=== PATIENT | female | born 1985 | race Caucasian/White ===

== ENCOUNTER 2021-02-03 19:20 | Emergency (ER) | payer OTHER ==
[2021-02-03] MEDS ORDERED: SODIUM CHLORIDE 0.9% 1,000 ML IV STA (19:48)
--- NOTE | 2021-02-03 19:50 | ED ---
Female Urogenital HPI - General Chief complaint: Vaginal Bleeding Stated complaint: early , vaginal bleeding Time Seen by Provider: 02/03/21 19:33 Source: patient Mode of arrival: ambulatory Limitations: no limitations - History of Present Illness Initial comments: 35-year-old female, , ten-day presenting to emergency Department w ith a chief complaint of vaginal bleeding. Patient reports she has recently moved to the area and about 10 days ago she found out she was after 2 positive home test. Patient reports last night she noticed small amount of spotting but today she noticed passing bright red clots. States the bleeding is rather minimal she is going through one pad about every 2-3 hours. She reports mild suprapubic cramping but nothing of significance. Does report some diffuse, mild low back pain. She denies any vaginal discharge, itching or foul smell. Denies increased urgency frequency or dysuria. Denies any fevers chills nausea vomiting or diarrhea. She is O-. - Related Data Home Medications Medication Instructions Recorded Confirmed No Known Home Medications 02/03/21 02/03/21 Allergies Allergy/AdvReac Type Severity Reaction Status Date / Time Penicillins Allergy Unknown Verified 02/03/21 20:41 Review of Systems ROS Statement: Those systems with pertinent positive or pertinent negative responses have been documented in the HPI. ROS Other: All systems not noted in ROS Statement are negative. Past Medical History Past Medical History: No Reported History History of Any Multi-Drug Resistant Organisms: None Reported Additional Past Surgical History / Comment(s): fibroid removal 2012 Past Psychological History: No Psychological Hx Reported Smoking Status: Never smoker Past Alcohol Use History: None Reported Past Drug Use History: None Reported General Exam Limitations: no limitations General appearance: alert, in no apparent distress, obese Head exam: Present: atraumatic, normocephalic, normal inspection Eye exam: Present: normal appearance, PERRL, EOMI Pupils: Present: normal accommodation ENT exam: Present: normal exam, normal oropharynx, mucous membranes moist Neck exam: Present: normal inspection, full ROM. Absent: tenderness, lymphadenopathy Respiratory exam: Present: normal lung sounds bilaterally. Absent: respiratory distress, wheezes, rales, rhonchi, stridor, chest wall tenderness Cardiovascular Exam: Present: regular rate, normal rhythm, normal heart sounds. Absent: systolic murmur GI/Abdominal exam: Present: soft. Absent: distended, tenderness, guarding, rebound, rigid Extremities exam: Present: normal inspection, full ROM, normal capillary refill. Absent: tenderness, pedal edema, joint swelling Back exam: Present: normal inspection, full ROM. Absent: tenderness, CVA tenderness (R), CVA tenderness (L), muscle spasm, paraspinal tenderness Neurological exam: Present: alert, oriented X3 Psychiatric exam: Present: normal affect, normal mood Skin exam: Present: warm, dry, intact, normal color Course Vital Signs 02/03/21 19:28 Temperature 98.5 F Pulse Rate 75 Respiratory 22 Rate Blood Pressure 117/77 O2 Sat by Pulse 99 Oximetry Medical Decision Making - Medical Decision Making 35-year-old female, , ten-day presenting to emergency Department with a chief complaint of vaginal bleeding. On physical examination, no abdominal tenderness. No CVA tenderness either. Vital signs are within normal limits. Laboratory work is unremarkable. HCG Quant is 11. UA shows hematuria but no signs of urinary tract infection. No bacteriuria. Ultrasound shows no acute findings. It is too early for any detectable findings at this time. Patient is O-. She will be given rhogam. She is to follow-up with an OB. Return parameters were discussed the patient is an ascending ago. Case di scussed with - Lab Data Result diagrams: 02/03/21 20:32 02/03/21 20:32 Lab Results 02/03/21 02/03/21 02/03/21 Range/Units 20:27 20:32 20:32 WBC 4.6 (3.8-10.6) k/uL RBC 4.16 (3.80-5.40) m/uL Hgb 12.7 (11.4-16.0) gm/dL Hct 37.8 (34.0-46.0) % MCV 90.9 (80.0-100.0) fL MCH 30.5 (25.0-35.0) pg MCHC 33.6 (31.0-37.0) g/dL RDW 14.1 (11.5-15.5) % Plt Count 164 (150-450) k/uL MPV 8.7 Neutrophils % 61 % Lymphocytes % 30 % Monocytes % 4 % Eosinophils % 2 % Basophils % 0 % Neutrophils # 2.8 (1.3-7.7) k/uL Lymphocytes # 1.4 (1.0-4.8) k/uL Monocytes # 0.2 (0-1.0) k/uL Eosinophils # 0.1 (0-0.7) k/uL Basophils # 0.0 (0-0.2) k/uL PT 10.4 (9.0-12.0) sec INR 1.0 (<1.2) APTT 23.3 (22.0-30.0) sec Sodium (137-145) mmol/L Potassium (3.5-5.1) mmol/L Chloride (98-107) mmol/L Carbon Dioxide (22-30) mmol/L Anion Gap mmol/L BUN (7-17) mg/dL Creatinine (0.52-1.04) mg/dL Est GFR (CKD-EPI)AfAm (>60 ml/min/1.73 sqM) Est GFR (CKD-EPI)NonAf (>60 ml/min/1.73 sqM) Glucose (74-99) mg/dL Calcium (8.4-10.2) mg/dL Total Bilirubin (0.2-1.3) mg/dL AST (14-36) U/L ALT (4-34) U/L Alkaline Phosphatase (38-126) U/L Total Protein (6.3-8.2) g/dL Albumin (3.5-5.0) g/dL HCG, Quant mIU/mL Urine Color Urine Appearance (Clear) Urine pH (5.0-8.0) Ur Specific [place] (1.001-1.035) Urine Protein (Negative) Urine Glucose (UA) (Negative) Urine Ketones (Negative) Urine Blood (Negative) Urine Nitrite (Negative) Urine Bilirubin (Negative) Urine Urobilinogen (<2.0) mg/dL Ur Leukocyte Esterase (Negative) Urine RBC (0-5) /hpf Ur Squamous Epith Cells (0-4) /hpf Urine Mucus (None) /hpf Urine HCG, Qual (Not Detectd) Blood Type O Negative Blood Type Confirm Blood Type Recheck Bld Type Recheck Status Antibody Screen NEGATIVE Spec Expiration Date 02/03/21 02/03/21 02/03/21 Range/Units 20:32 20:32 20:32 WBC (3.8-10.6) k/uL RBC (3.80-5.40) m/uL Hgb (11.4-16.0) gm/dL Hct (34.0-46.0) % MCV (80.0-100.0) fL MCH (25.0-35.0) pg MCHC (31.0-37.0) g/dL RDW (11.5-15.5) % Plt Count (150-450) k/uL MPV Neutrophils % % Lymphocytes % % Monocytes % % Eosinophils % % Basophils % % Neutrophils # (1.3-7.7) k/uL Lymphocytes # (1.0-4.8) k/uL Monocytes # (0-1.0) k/uL Eosinophils # (0-0.7) k/uL Basophils # (0-0.2) k/uL PT (9.0-12.0) sec INR (<1.2) APTT (22.0-30.0) sec Sodium 137 (137-145) mmol/L Potassium 4.3 (3.5-5.1) mmol/L Chloride 107 (98-107) mmol/L Carbon Dioxide 21 L (22-30) mmol/L Anion Gap 9 mmol/L BUN 15 (7-17) mg/dL Creatinine 0.87 (0.52-1.04) mg/dL Est GFR (CKD-EPI)AfAm >90 (>60 ml/min/1.73 sqM) Est GFR (CKD-EPI)NonAf 87 (>60 ml/min/1.73 sqM) Glucose 108 H (74-99) mg/dL Calcium 9.2 (8.4-10.2) mg/dL Total Bilirubin 0.3 (0.2-1.3) mg/dL AST 21 (14-36) U/L ALT 11 (4-34) U/L Alkaline Phosphatase 76 (38-126) U/L Total Protein 6.9 (6.3-8.2) g/dL Albumin 4.3 (3.5-5.0) g/dL HCG, Quant mIU/mL Urine Color Yellow Urine Appearance Clear (Clear) Urine pH 6.5 (5.0-8.0) Ur Specific [place] 1.030 (1.001-1.035) Urine Protein Trace H (Negative) Urine Glucose (UA) Negative (Negative) Urine Ketones Negative (Negative) Urine Blood Large H (Negative) Urine Nitrite Negative (Negative) Urine Bilirubin Negative (Negative) Urine Urobilinogen 12.0 (<2.0) mg/dL Ur Leukocyte Esterase Negative (Negative) Urine RBC >182 H (0-5) /hpf Ur Squamous Epith Cells 1 (0-4) /hpf Urine Mucus Moderate H (None) /hpf Urine HCG, Qual Detected (Not Detectd) Blood Type Blood Type Confirm Blood Type Recheck Bld Type Recheck Status Antibody Screen Spec Expiration Date 02/03/21 02/03/21 02/03/21 Range/Units 20:32 20:32 20:51 WBC (3.8-10.6) k/uL RBC (3.80-5.40) m/uL Hgb (11.4-16.0) gm/dL Hct (34.0-46.0) % MCV (80.0-100.0) fL MCH (25.0-35.0) pg MCHC (31.0-37.0) g/dL RDW (11.5-15.5) % Plt Count (150-450) k/uL MPV Neutrophils % % Lymphocytes % % Monocytes % % Eosinophils % % Basophils % % Neutrophils # (1.3-7.7) k/uL Lymphocytes # (1.0-4.8) k/uL Monocytes # (0-1.0) k/uL Eosinophils # (0-0.7) k/uL Basophils # (0-0.2) k/uL PT (9.0-12.0) sec INR (<1.2) APTT (22.0-30.0) sec Sodium (137-145) mmol/L Potassium (3.5-5.1) mmol/L Chloride (98-107) mmol/L Carbon Dioxide (22-30) mmol/L Anion Gap mmol/L BUN (7-17) mg/dL Creatinine (0.52-1.04) mg/dL Est GFR (CKD-EPI)AfAm (>60 ml/min/1.73 sqM) Est GFR (CKD-EPI)NonAf (>60 ml/min/1.73 sqM) Glucose (74-99) mg/dL Calcium (8.4-10.2) mg/dL Total Bilirubin (0.2-1.3) mg/dL AST (14-36) U/L ALT (4-34) U/L Alkaline Phosphatase (38-126) U/L Total Protein (6.3-8.2) g/dL Albumin (3.5-5.0) g/dL HCG, Quant 11.4 mIU/mL Urine Color Urine Appearance (Clear) Urine pH (5.0-8.0) Ur Specific [place] (1.001-1.035) Urine Protein (Negative) Urine Glucose (UA) (Negative) Urine Ketones (Negative) Urine Blood (Negative) Urine Nitrite (Negative) Urine Bilirubin (Negative) Urine Urobilinogen (<2.0) mg/dL Ur Leukocyte Esterase (Negative) Urine RBC (0-5) /hpf Ur Squamous Epith Cells (0-4) /hpf Urine Mucus (None) /hpf Urine HCG, Qual (Not Detectd) Blood Type Blood Type Confirm O Negative Blood Type Recheck No Previous Record Bld Type Recheck Status CABO Indicated Antibody Screen Spec Expiration Date 02/06/20212331 Disposition Clinical Impression: Vaginal bleeding in patient after first trimester Disposition: HOME SELF-CARE Condition: Stable Instructions (If sedation given, give patient instructions): Non-Threatening First Trimester Vaginal Bleed (ED) Additional Instructions: Follow-up with her OB. Return to emergency department if symptoms worsen. Is patient prescribed a controlled substance at d/c from ED?: No Referrals: Ricardo Walters III, MD [Primary Care Provider] - 1-2 days Time of Disposition: 22:16
[2021-02-03 20:42] LABS: Basophils % (A) 0 %; Eosinophils # (A) 0.1 k/uL (0-0.7); Eosinophils % (A) 2 %; HCT 37.8 % (34.0-46.0); HGB 12.7 gm/dL (11.4-16.0); Lymphocytes # (A) 1.4 k/uL (1.0-4.8); Lymphocytes % (A) 30 %; MCH 30.5 pg (25.0-35.0); MCHC 33.6 g/dL (31.0-37.0); MCV 90.9 fL (80.0-100.0); Mean Platelet Volume 8.7; Monocytes # (A) 0.2 k/uL (0-1.0); Monocytes % (A) 4 %; Neutrophils # (A) 2.8 k/uL (1.3-7.7); Neutrophils % (A) 61 %; Platelet Count 164 k/uL (150-450); RBC 4.16 m/uL (3.80-5.40); RDW 14.1 % (11.5-15.5); WBC 4.6 k/uL (3.8-10.6)
[2021-02-03 20:54] LABS: Appearance,Urine Clear (Clear); Bilirubin,Urine Negative (Negative); Blood,Urine Large (Negative); Color,Urine Yellow; Glucose,Urine (UA) Negative (Negative); Ketones,Urine Negative (Negative); Leukocyte Esterase,Urine Negative (Negative); Mucus,Urine Moderate /hpf; Nitrite,Urine Negative (Negative); PH, Urine 6.5 (5.0-8.0); Protein,Urine Trace (Negative); RBC,Urine >182 /hpf (0-5); Squamous Epithelial Cell,Urine 1 /hpf (0-4)
[2021-02-03 20:59] LABS: Partial Thromboplastin Time 23.3 sec (22.0-30.0); Prothrombin Time 10.4 sec (9.0-12.0)
[2021-02-03 21:04] LABS: ALT 11 U/L (4-34); AST 21 U/L (14-36); African American GFR (CKD) >90 (>60 ml/min/1.73 sqM); Albumin 4.3 g/dL (3.5-5.0); Alkaline Phosphatase 76 U/L (38-126); Anion Gap 9 mmol/L; Blood Urea Nitrogen 15 mg/dL (7-17); Calcium 9.2 mg/dL (8.4-10.2); Carbon Dioxide 21 mmol/L (22-30); Chloride 107 mmol/L (98-107); Glucose 108 mg/dL (74-99); Non-African American GFR(CKD) 87 (>60 ml/min/1.73 sqM); Potassium 4.3 mmol/L (3.5-5.1); Sodium 137 mmol/L (137-145); Total Bilirubin 0.3 mg/dL (0.2-1.3); Total Protein 6.9 g/dL (6.3-8.2)
--- NOTE | 2021-02-03 21:35 | US ---
EXAMINATION TYPE: Transabdominal DATE OF EXAM: 02/03/2021 9:06 PM COMPARISON: NONE CLINICAL HISTORY: vag bleeding, 10 days . Vaginal bleeding. Hx fibroid removed. . EXAM PERFORMED: Transvaginal (TV) and Transabdominal (TA) EXAM MEASUREMENTS: GESTATIONAL AGE / DATING Physician Established: Not yet established. Dates by LMP: (5 weeks/6 days) EDC: 09/30/2021 Dates by First Scan: This is first scan. Dates by Current Scan for: No IUP seen at this time. MATERNAL ANATOMY Uterus: 9.9 x 6.6 x 4.3 cm. Anechoic area seen in cervix: 0.7 x 0.4 x 0.2 cm. Complex area seen in c ervix: 1.4 x 0.9 x 0.7 cm. Right Ovary: 3.7 x 2.5 x 2.5 cm. Hypoechoic area seen: 0.9 x 1.0 x 1.0 cm. Anechoic area seen: 1.0 x 1.0 x 1.1 cm. Left Ovary: 2.9 x 2.7 x 1.3 cm. Subcentimeter anechoic areas seen. Post CDS / Adnexa: Appear wnl. Presence of free fluid: None seen. Presence of corpus luteal cyst: Not seen. GESTATION / SURVEY IUP: No IUP seen at this time by ultrasound. Date of LMP: 12/24/2020 Beta HcG (if available): Not available at time of exam. IMPRESSION: No evidence of intrauterine or acute abnormality. Recommend serial beta hCG measurement and follow-up imaging as indicated. Nonspecific cystlike changes of the lower uterine segment and ovaries.
[2021-02-03] MEDS ORDERED: Rhogam IMMUNE GLOBULIN 1,500 UNIT/1 ML IM ONE (21:58)
[2021-02-03 23:14] VITALS: BP 120/74; PULSE 81; RESP 17; TEMP 98.2
== END 2021-02-03 22:50 | disposition home or self-care (01) ==
LOC: EC 19:20
DX: O20.9 Hemorrhage in early pregnancy, unspecified (principal); Z3A.01 Less than 8 weeks gestation of pregnancy; Z88.0 Allergy status to penicillin
CPT/HCPCS: 36415; 86900; 86901; 80053; 85025; 85610; 85730; 86850; 81001; 81025; 84702; 76801; 76817; 96360; 96361; 99284; 96372; J2790

== ENCOUNTER → 2021-03-04 | Outpatient (CLI) | payer OTHER | END | disposition home or self-care (01) | LOC: LABWHC1 12:21 | PROVIDERS: ATTEND Family Medicine | DX: R43.9 Unspecified disturbances of smell and taste (principal) | CPT/HCPCS: U0003; U0005 ==

== ENCOUNTER 2021-03-07 13:57 | Emergency (ER) | payer OTHER ==
[2021-03-07] MEDS ORDERED: diphenhydrAMINE 50 MG/ML 1 ML VIAL IVP STA ×2 (15:28→16:46)
[2021-03-07] MEDS ORDERED: SODIUM CHLORIDE 0.9% 1,000 ML IV STA ×2 (15:28→17:25)
[2021-03-07] MEDS ORDERED: KETOROLAC 15 MG/ML 1 ML VIAL IVP STA (15:28)
[2021-03-07] MEDS ORDERED: ONDANSETRON 4 MG/2 ML VIAL IVP STA (15:28)
[2021-03-07] MEDS ORDERED: SODIUM CHLORIDE 0.9% 50 ML IVPB ONE (16:00)
[2021-03-07] MEDS ORDERED: CASIRIVIMAB/IMDEVIMAB (EUA) 1,200 MG in SODIUM CHLORIDE 0.9% 100 ML IVPB ONE (16:30)
--- NOTE | 2021-03-07 16:30 | ED ---
General Adult HPI - General Chief complaint: Nausea/Vomiting/Diarrhea Stated complaint: vomiting Time Seen by Provider: 03/07/21 15:04 Source: patient, RN notes reviewed, old records reviewed Mode of arrival: wheelchair Limitations: no limitations - History of Present Illness Initial comments: I evaluated the patient and she was placed in a room.Patient is a 35-year-old female with past medical history that is unremarkable presents emergency Department complaining of a COVID-19 for infection. Patient states that she began having symptoms on the fifth of this month and tested positive on the . Is currently the 12th. Patient's BMI is 31, and therefore she does meet criteria for monoclonal antibody treatment. She is describing persistent joint pain, nausea, vomiting. She states that the emesis is nonbilious nonbloody. Throughout the day today, she states that her emesis is been worse and she has been unable to tolerate by mouth intake which is why she presents immersed department for evaluation. She denies any fevers, chills, chest pain, shortness of breath. Denies any headaches, weakness, lightheadedness. Primary complaint is joint pain as well as the nausea. She was not vaccinated for COVID-19. - Related Data Home Medications Medication Instructions Recorded Confirmed Acetaminophen Tab [Tylenol Tab] 1,000 mg PO Q6HR PRN 03/07/21 03/07/21 Naproxen 1,000 mg PO Q8H PRN 03/07/21 03/07/21 guaiFENesin [Mucinex] 1,200 mg PO BID PRN 03/07/21 03/07/21 Previous Rx's Medication Instructions Recorded Acetaminophen Tab [Tylenol] 500 mg PO Q6H PRN 7 Days #28 tablet 03/07/21 Ondansetron Odt [Zofran Odt] 4 mg PO Q8HR PRN 2 Days #6 tab 03/07/21 Allergies Allergy/AdvReac Type Severity Reaction Status Date / Time Penicillins Allergy Unknown Verified 03/07/21 15:59 Review of Systems ROS Statement: Those systems with pertinent positive or pertinent negative responses have been documented in the HPI. Review of Systems: CONST: Denies fever EYES: Denies blurry vision ENT: Denies nasal congestion C/V: Denies Chest pain RESP: Denies shortness of breath GI: Nurse's nausea : Denies dysuria SKIN: Denies rash. MSK: Endorses joint pain NEURO: Denies headache ROS Other: All systems not noted in ROS Statement are negative. Past Medical History Past Medical History: No Reported History History of Any Multi-Drug Resistant Organisms: None Reported Past Surgical History: No Surgical Hx Reported Additional Past Surgical History / Comment(s): fibroid removal 2012 Past Psychological History: No Psychological Hx Reported Smoking Status: Never smoker Past Alcohol Use History: None Reported Past Drug Use History: None Reported General Exam - General Exam Comments Initial Comments: General: Appears in no acute distress. HEAD: Normal with no signs of head trauma. EYES: PERRLA, EOMI, conjunctiva normal, no discharge. ENT: Hearing grossly intact, normal oropharynx. Mucous membranes are moist. RESPIRATORY: Clear breath sounds bilaterally. No wheezes, rales, or rhonchi. C/V: Patient is mildly tachycardic with regular rhythm. S1 and S2 auscultated. No peripheral edema. Peripheral pulses are 2+ intact throughout. ABD: Abd is soft, nontender, nondistended EXT: Normal range of motion, no obvious deformity SKIN: No rashes or lesions observed on exposed skin. NEURO: Alert and oriented 4. No focal sensory strength deficits. Limitations: no limitations Course Vital Signs 03/07/21 03/07/21 03/07/21 14:17 16:54 18:29 Temperature 98.6 F 98.6 F Pulse Rate 106 H 99 122 H Respiratory 20 16 18 Rate Blood Pressure 104/71 104/63 125/72 O2 Sat by Pulse 96 93 L 97 Oximetry 03/07/21 03/07/21 18:56 19:12 Temperature 98 F Pulse Rate 100 99 Respiratory 16 20 Rate Blood Pressure 109/78 O2 Sat by Pulse 97 97 Oximetry Medical Decision Making - Medical Decision Making Based on the patient's presentation and physical exam, she is acutely infected COVID-19. She does meet criteria for monoclonal antibody treatment and therefore these are ordered for her. She consented to treatment. We will obtain basic laboratory studies as I believe she may be mildly dehydrated. She will be given a fluid bolus as well as IV Zofran, Benadryl for her abdominal discomfort. She was in agreement this plan. Patient's lavatory studies are remarkable for a lymphopenia with white blood cell count of 2.6 and lymphocyte number of 0.4 which is expected in acute COVID- 19 infection. Urinalysis reveals 2+ ketones, indicative of a dehydration. Remainder of her labs are unremarkable. On reevaluation, patient seems somewhat improved. Monoclonal antibody treatment will be started and she'll be observed for signs of an ALLERGIC reaction. Approximate 5 minutes after monoclonal antibody treatment, patient states that she felt chest tightness, and thought she was having ALLERGIC reaction. Denies any pruritus or difficulty breathing. Denies any nausea or vomiting. The infusion was stopped. She was administered an additional 25 mg of IV Benadryl as well as IV famotidine and Solu-Medrol. She improved following this. She may have expressing mild ALLERGIC reaction to the monoclonal antibodies but we will observe for any breakthrough reactions of in the next few hours. She was in agreement this plan. She'll be given an additional fluid bolus. She requested pain medications for her joint pain which was provided. On reevaluation, patient is tolerating by mouth intake. She was observed for 2 additional hours in the ED. I do believe it is safe for her to be discharged home with close follow-up and she was in agreement this plan. Patient was never hypoxic in the emergency department I do not believe that she requires admission at this time for COVID-19 infection. She does not meet criteria for steroids or other treatments at this time. Monoclonal antibody treatment was stopped secondary to mild allergic reaction. I will provide the patient with a prescription for Zofran ODT, Tylenol. I instructed the patient to follow up with their PCP in the next 3 days. . I explained that the patient should return to the emergency department if they experience any worsening symptoms. Strict return precautions were discussed with the patient. The patient expressed understanding of these instructions. I answered all questions that the patient had. The patient was discharged home in fair condition with their prescriptions and follow up information. - Lab Data Result diagrams: 03/07/21 16:30 03/07/21 16:30 Lab Results 03/07/21 03/07/21 03/07/21 Range/Units 16:30 16:30 16:30 WBC 2.6 L (3.8-10.6) k/uL RBC 4.30 (3.80-5.40) m/uL Hgb 13.2 (11.4-16.0) gm/dL Hct 37.6 (34.0-46.0) % MCV 87.5 (80.0-100.0) fL MCH 30.6 (25.0-35.0) pg MCHC 35.0 (31.0-37.0) g/dL RDW 13.0 (11.5-15.5) % Plt Count 107 L (150-450) k/uL MPV 8.1 Neutrophils % 80 % Lymphocytes % 16 % Monocytes % 2 % Eosinophils % 0 % Basophils % 1 % Neutrophils # 2.1 (1.3-7.7) k/uL Lymphocytes # 0.4 L (1.0-4.8) k/uL Monocytes # 0.1 (0-1.0) k/uL Eosinophils # 0.0 (0-0.7) k/uL Basophils # 0.0 (0-0.2) k/uL Sodium 138 (137-145) mmol/L Potassium 4.1 (3.5-5.1) mmol/L Chloride 107 (98-107) mmol/L Carbon Dioxide 22 (22-30) mmol/L Anion Gap 9 mmol/L BUN 14 (7-17) mg/dL Creatinine 0.63 (0.52-1.04) mg/dL Est GFR (CKD-EPI)AfAm >90 (>60 ml/min/1.73 sqM) Est GFR (CKD-EPI)NonAf >90 (>60 ml/min/1.73 sqM) Glucose 95 (74-99) mg/dL Calcium 8.4 (8.4-10.2) mg/dL Magnesium 1.8 (1.6-2.3) mg/dL Total Bilirubin 0.5 (0.2-1.3) mg/dL AST 36 (14-36) U/L ALT 16 (4-34) U/L Alkaline Phosphatase 70 (38-126) U/L Total Protein 6.7 (6.3-8.2) g/dL Albumin 3.6 (3.5-5.0) g/dL Lipase 86 (23-300) U/L Urine Color Yellow Urine Appearance Clear (Clear) Urine pH 6.0 (5.0-8.0) Ur Specific [place] 1.036 H (1.001-1.035) Urine Protein 1+ H (Negative) Urine Glucose (UA) Negative (Negative) Urine Ketones 2+ H (Negative) Urine Blood Negative (Negative) Urine Nitrite Negative (Negative) Urine Bilirubin Negative (Negative) Urine Urobilinogen 6.0 (<2.0) mg/dL Ur Leukocyte Esterase Negative (Negative) Urine RBC 9 H (0-5) /hpf Urine WBC 2 (0-5) /hpf Ur Squamous Epith Cells 2 (0-4) /hpf Urine Bacteria Rare H (None) /hpf Urine Mucus Few H (None) /hpf Disposition Clinical Impression: COVID-19 virus infection, Allergic reaction, Nausea and vomiting, Dehydration Disposition: HOME SELF-CARE Condition: Fair Instructions (If sedation given, give patient instructions): Coronavirus Disease 2019 (COVID-19), Acute Nausea and Vomiting (ED) Prescriptions: Acetaminophen Tab [Tylenol] 500 mg PO Q6H PRN 7 Days #28 tablet PRN Reason: Pain Ondansetron Odt [Zofran Odt] 4 mg PO Q8HR PRN 2 Days #6 tab PRN Reason: Nausea Is patient prescribed a controlled substance at d/c from ED?: No Referrals: Ricardo Walters III, MD [Primary Care Provider] - 1-2 days
[2021-03-07] MEDS ORDERED: methylPREDNISolone SOD SUCCI 125 MG/2 ML VIAL IV STA (16:46)
[2021-03-07] MEDS ORDERED: FAMOTIDINE 20 MG/2 ML VIAL IV STA (16:46)
[2021-03-07 16:48] LABS: Basophils % (A) 1 %; Eosinophils % (A) 0 %; HCT 37.6 % (34.0-46.0); HGB 13.2 gm/dL (11.4-16.0); Lymphocytes # (A) 0.4 k/uL (1.0-4.8); Lymphocytes % (A) 16 %; MCH 30.6 pg (25.0-35.0); MCV 87.5 fL (80.0-100.0); Mean Platelet Volume 8.1; Monocytes # (A) 0.1 k/uL (0-1.0); Monocytes % (A) 2 %; Neutrophils # (A) 2.1 k/uL (1.3-7.7); Neutrophils % (A) 80 %; Platelet Count 107 k/uL (150-450); WBC 2.6 k/uL (3.8-10.6)
[2021-03-07 17:02] LABS: ALT 16 U/L (4-34); AST 36 U/L (14-36); African American GFR (CKD) >90 (>60 ml/min/1.73 sqM); Albumin 3.6 g/dL (3.5-5.0); Alkaline Phosphatase 70 U/L (38-126); Anion Gap 9 mmol/L; Blood Urea Nitrogen 14 mg/dL (7-17); Calcium 8.4 mg/dL (8.4-10.2); Carbon Dioxide 22 mmol/L (22-30); Chloride 107 mmol/L (98-107); Glucose 95 mg/dL (74-99); Lipase 86 U/L (23-300); Magnesium 1.8 mg/dL (1.6-2.3); Non-African American GFR(CKD) >90 (>60 ml/min/1.73 sqM); Potassium 4.1 mmol/L (3.5-5.1); Sodium 138 mmol/L (137-145); Total Bilirubin 0.5 mg/dL (0.2-1.3); Total Protein 6.7 g/dL (6.3-8.2)
[2021-03-07 17:22] LABS: Appearance,Urine Clear (Clear); Bacteria,Urine Rare /hpf; Bilirubin,Urine Negative (Negative); Blood,Urine Negative (Negative); Color,Urine Yellow; Glucose,Urine (UA) Negative (Negative); Ketones,Urine 2+ (Negative); Leukocyte Esterase,Urine Negative (Negative); Mucus,Urine Few /hpf; Nitrite,Urine Negative (Negative); Protein,Urine 1+ (Negative); RBC,Urine 9 /hpf (0-5); Specific Gravity,Urine 1.036 (1.001-1.035); Squamous Epithelial Cell,Urine 2 /hpf (0-4); WBC,Urine 2 /hpf (0-5)
[2021-03-07] MEDS ORDERED: MORPHINE SULFATE 2 MG/ML SYRINGE IVP STA (17:41)
[2021-03-07] MEDS ORDERED: ACETAMINOPHEN TAB 500 MG TAB PO STA (17:41)
[2021-03-07] MEDS ORDERED: ONDANSETRON ODT 4 MG TAB PO STA (19:04)
[2021-03-07 19:13] VITALS: BP 109/78; PULSE 99; RESP 20; TEMP 98
== END 2021-03-07 19:12 | disposition home or self-care (01) ==
LOC: EC 13:57
DX: U07.1 COVID-19 (principal); T78.40XA Allergy, unspecified, initial encounter; E86.0 Dehydration; D72.810 Lymphocytopenia; Z88.0 Allergy status to penicillin
CPT/HCPCS: 36415; 80053; 83690; 83735; 85025; 81001; 99284; 96365; 96375; 96361; J1200; J2930; J2405; J2270; J1885; Q0243

== ENCOUNTER → 2021-09-27 | Outpatient (CLI) | payer OTHER ==
--- NOTE | 2021-09-27 12:02 | US ---
EXAMINATION TYPE: Ultrasound OB <= 14 week fetus DATE OF EXAM: 09/27/2021 9:19 AM COMPARISON: NONE CLINICAL HISTORY: 36-year-old female Z36.89 CONFIRM GESTATIONAL AGE AND VIABILITY. EXAM PERFORMED: Transabdominal (TA) EXAM MEASUREMENTS: FINDINGS: GESTATIONAL AGE / DATING Physician Established: Not yet established Dates by LMP: (12 weeks/6 days) EDC: 04/05/22 Dates by First Scan: No previous this is first scan Dates by Current Scan for: (7 weeks/6 days) -unable to detect heart tones at this time EDC: 05/10/22 MATERNAL ANATOMY Uterus: 13.2 x 6.4 x 9.0cm Right Ovary: 3.6 x 1.5 x 1.9cm Left Ovary: 3.4 x 1.8 x 2.0cm Post CDS / Adnexa: wnl Presence of free fluid: no Presence of corpus luteal cyst: yes, hypoechoic area left ovary = 2.0 x 1.5 x 1.8cm Presence of subchorionic bleed: yes, adjacent to gestational sac = 3.0 x 5.2cm GESTATION / SURVEY CRL: 1.4cm (7 weeks/6 days) Yolk Sac (normal less than 6mm): 0.2cm Heart Rate: not detected by cine grayscale, color Doppler, power Doppler, and M-mode. IUP: Demise Date of LMP: 06/29/21 Beta HcG (if available): Not available at this time IMPRESSION: 1. Discordant dates based on LMP versus crown-rump length. pole measures small at 1.4 cm (7 wee ks 6 days) and shows no cardiac activity. Findings suggest demise. Correlate with dental fillin g beta-hCGs. 2. Relatively large 5.2 cm perigestational bleed underlying the pole.
== END | disposition home or self-care (01) ==
LOC: RADUSWWP 09:01
PROVIDERS: ATTEND Obstetrics & Gynecology
DX: Z36.89 Encounter for other specified antenatal screening (principal)
CPT/HCPCS: 76801

== ENCOUNTER → 2022-09-09 | Outpatient (CLI) | payer OTHER ==
--- NOTE | 2022-09-09 11:12 | MM ---
Reason for Exam: Clinical finding. Indicated Problems: Lump or thickening of the right side for 2 Week(s). Patient History: Menarche at age 14. First Full-Term at age 21. Last menstrual period: 08/15/2022 Risk Values: Ronda 5 year model risk: 0.3%. NCI Lifetime model risk: 8.4%. Tissue Density: The breast tissue is heterogeneously dense. This may lower the sensitivity of mammography. Findings: Analyzed By CAD. No suspicious masses, calcifications, or architectural distortion within either breast. No suspicious masses, calcifications, or architectural distortion within either breast. Ductal ectasia with debris demonstrated within the right breast on recent ultrasound. Overall Assessment: Probably benign, BI-RAD 3 Management: Diagnostic Breast Ultrasound of the right breast in 6 months. A clinical breast exam by your physician is recommended on an annual basis and results should be correlated with mammographic findings. This exam should not preclude additional follow-up of suspicious palpable abnormalities. Results were given to the patient verbally at the time of exam. Electronically signed and approved by: Elmer Laughlin D.O.
== END | disposition home or self-care (01) ==
LOC: RADMAMWWP 10:45
PROVIDERS: ATTEND Family Medicine
DX: N63.10 Unspecified lump in the right breast, unspecified quadrant (principal)
CPT/HCPCS: 77062; 77066

== ENCOUNTER → 2022-09-22 | Outpatient (CLI) | payer OTHER ==
[2022-09-22 12:38] VITALS: BP 113/75; PULSE 84; RESP 16; TEMP 98.1
--- NOTE | 2022-09-22 13:02 | P.GSHP ---
History of Present Illness H&P Date: 09/22/22 Chief Complaint: abnormal ultrasound right breast Gris is a 37-year-old white female seen in consultation for Dr. Walters regarding her work radiographic abnormality in her right breast. [place] [id number] as well as a right breast ultrasound. 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 No definitive intraductal round lesion was identified. It was felt that this was probably benign BIRADS 3 and ultrasound of the right breast in 6 months was recommended. The studies were done because she felt a lump in her right breast. The lump has not changed. It is not painful. It is slightly larger at the time of her menstrual cycle. She is not complaining of any nipple discharge at this time. She has had 7 pregnancies with 6 children. Her youngest child is 3 years old, a miscarriage occurred approximately one year ago. Caffiene: 1 cup/day nicotine: none chocolate: daily Family History: mother: ovarian cancer at 39 she had a TANIA BSO and chemotherapy is doing well, she did not have genetic testing Hormonal History: menarche: 13 M1, breast fed: all of them; age at first : 21 ( one of these was a surrogate ) periods regular Medical History: [facility] Surgical History: uterine fibroid removed in 2012 Social History: nicotine: none alcohol: occasional drugs: none - Constitutional Constitutional: Denies chills, Denies fever - EENT Eyes: denies blurred vision, denies pain Ears: deny: decreased hearing, tinnitus Ears, nose, mouth and throat: Denies headache, Denies sore throat - Breasts Breasts: bilateral: as per HPI - Cardiovascular Cardiovascular: Denies chest pain, Denies shortness of breath - Respiratory Respiratory: Denies cough, Denies 7 - Gastrointestinal Gastrointestinal: Denies abdominal pain, Denies diarrhea, Denies nausea, Denies vomiting - Genitourinary (Female) Comment: UTI occasional Genitourinary: Reports kidney stones, Denies dysuria, Denies hematuria - Menstruation Menstruation: Reports period normal - Musculoskeletal Musculoskeletal: Reports myalgias - Integumentary Integumentary: Denies pruritus, Denies rash - Neurological Neurological: Denies numbness, Denies weakness - Psychiatric Psychiatric: Reports anxiety, Denies depression - Endocrine Endocrine: Reports weight change - Hematologic/Lymphatic Comment: none - Allergic/Immunologic Allergic/Immunologic: Reports as per HPI Past Medical History Past Medical History: No Reported History History of Any Multi-Drug Resistant Organisms: None Reported Past Surgical History: No Surgical Hx Reported Additional Past Surgical History / Comment(s): fibroid removal 2012 Past Psychological History: No Psychological Hx Reported Smoking Status: Never smoker Past Alcohol Use History: None Reported Past Drug Use History: None Reported Medications and Allergies Home Medications Medication Instructions Recorded Confirmed Type FLUoxetine HCL [Prozac] 40 mg PO DAILY 09/22/22 09/22/22 History Allergies Allergy/AdvReac Type Severity Reaction Status Date / Time Penicillins Allergy Unknown Verified 09/22/22 12:34 Surgical - Exam Vital Signs Temp Pulse Resp BP Pulse Ox 98.1 F 84 16 113/75 97 09/22/22 12:35 09/22/22 12:35 09/22/22 12:35 09/22/22 12:35 09/22/22 12:35 - General no distress - Eyes normal ocular movement - Neck trachea midline - Respiratory normal respiratory effort, clear to auscultation - Cardiovascular Rhythm: regular Heart Sounds: normal: S1, S2 - Abdomen Abdomen: soft, non tender, no guarding, no rigid, no rebound - Integumentary normal turgor - Neurologic no disoriented, no combative - Musculoskeletal normal gait, normal posture - Psychiatric oriented to time, oriented to person, oriented to place, speech is normal, memory intact Breast Exam: BRA: large sports bra inspection: bilateral grade 2/3 Palpation: Right breast: Multiple positional exam fibrocystic changes no dominant masses or nodules of concern Right axilla: No adenopathy of concern Left breast: Multiple positional exam fibrocystic changes no dominant masses or nodules of concern Left axilla: No adenopathy of concern Results Bilateral mammogram grandma and ultrasound of the right breast reviewed personally; most likely consistent with duct ectasia on the right Assessment and Plan Assessment: Impression: abnormal right breast ultrasound probable duct ectasia The cystic breast changes Plan: Repeat right breast ultrasound in 6 months Patient to follow up sooner any questions or concerns CC: Dr. Walters
== END ==
LOC: WWCWWP 11:54
PROVIDERS: ATTEND Surgery
DX: N63.10 Unspecified lump in the right breast, unspecified quadrant (principal); Z79.899 Other long term (current) drug therapy; Z88.0 Allergy status to penicillin

== ENCOUNTER → 2022-11-29 | Outpatient (CLI) | payer OTHER ==
--- NOTE | 2022-11-29 16:37 | US ---
EXAMINATION TYPE: Transabdominal DATE OF EXAM: 11/29/2022 4:11 PM COMPARISON: NONE CLINICAL INDICATION: Female, 37 years old with history of Z36.89 SCREENING; confirm dates EXAM PERFORMED: Transabdominal (TA) EXAM MEASUREMENTS: GESTATIONAL AGE / DATING Physician Established: Not yet established Dates by LMP: (11 weeks/3 days) EDC: 06/17/23 Dates by First Scan: No previous this is first scan Dates by Current Scan for: (11 weeks/4 days) EDC: 06/16/23 MATERNAL ANATOMY Uterus: 13.0 x 8.0 x 9.5cm - complex anechoic structure right of gestational sac = 0.7cm ?etiology Right Ovary: 3.6 x 2.0 x 1.6cm Left Ovary: 3.6 x 4.4 x 2.1cm Post CDS / Adnexa: wnl Presence of free fluid: no Presence of corpus luteal cyst: complex hypoechoic area left ovary = 2.5 x 2.2 x 2.9cm Presence of subchorionic bleed: hypoechoic area adjacent to gestational sac = 3.6cm GESTATION / SURVEY CRL: 4.6cm (11 weeks/4 days) Yolk Sac (normal less than 6mm): not seen Heart Rate: 167 bpm Rhythm: Normal IUP: Viable IUP Date of LMP: 09/10/22 Beta HcG (if available): Not available at this time Single live intrauterine gestation. IMPRESSION: 1. Single live intrauterine gestation with estimated gestational age of 11 weeks 4 days and estimate d due date of 06/16/2023. 2. Ifous-bx-wcvgelee sized subchorionic hemorrhage. Close clinical surveillance is recommended. 3. Small complex structure right of the gestational sac within the uterus. This is nonspecific and c ould represent a subchorionic hemorrhage versus other etiologies such as a thrombosed intrauterine ve ssel versus other. Attention on follow-up exam.
== END | disposition home or self-care (01) ==
LOC: RADUSWWP 15:44
PROVIDERS: ATTEND Obstetrics & Gynecology
DX: Z36.89 Encounter for other specified antenatal screening (principal); O20.8 Other hemorrhage in early pregnancy; Z3A.11 11 weeks gestation of pregnancy
CPT/HCPCS: 76801

== ENCOUNTER → 2022-12-30 | Outpatient (CLI) | payer OTHER ==
--- NOTE | 2022-12-30 11:07 | US ---
EXAMINATION TYPE: US OB >= 14 wk fetus DATE OF EXAM: 12/30/2022 COMPARISON: None CLINICAL INDICATION: Female, 37 years old with history of O76 ABNLT IN HEART RATE; no hea rt tones sent from OB office. TECHNIQUE: Transabdominal (TA) GESTATIONAL AGE / DATING Physician Established: (16 weeks/0 days) EDC: 06/16/2023 Dates by LMP: (16 weeks/0 days) EDC: 06/16/2023 Dates by First Scan: (11 weeks/3 days) EDC: 06/17/2023 Dates by Current Scan: (14 weeks/6 days) SURVEY IUP: Single PLACENTA: Anterior PREVIA: No Previa NASRA: 10.75 cm Normal CERVICAL LENGTH (transabdominal: norm > 3.0cm): 3.0 cm BIOMETRY PRESENTATION: Vertex LIE: Longitudinal BPD: 2.55 cm 14 weeks / 3 days HC: 9.97 cm 14 weeks / 4 days AC: 9.02 cm 15 weeks / 2 days FL: 1.36 cm 14 weeks / 0 days ESTIMATED WEIGHT IN GRAMS: 102.20 grams ESTIMATED WEIGHT IN LBS/OZ: 0 lbs. 4 oz. WEIGHT PERCENTAGE BASED ON ESTABLISHED DATES: <3% HC/AC: 1.11 cm FL/AC: 53.38 HEART RATE: No heart tones seen. No heart tones seen. No color flow on Doppler. demise. weight is below the 3rd perc entile. age is dating 1 week behind dating by physician established EDC and LMP. IMPRESSION: 1. Nonvisualization of heart tones compatible with demise.
== END | disposition home or self-care (01) ==
LOC: RADUSWWP 10:09
PROVIDERS: ATTEND Obstetrics & Gynecology
DX: O36.8320 Maternal care for abnormalities of the fetal heart rate or rhythm, second trimester, not applicable or unspecified (principal); O76 Abnormality in fetal heart rate and rhythm complicating labor and delivery; Z3A.14 14 weeks gestation of pregnancy
CPT/HCPCS: 76805

== ENCOUNTER 2023-01-03 05:56 | Inpatient (IN) | payer OTHER ==
--- NOTE | 2023-01-02 07:39 | P.HPOB ---
History of Present Illness H&P Date: 01/02/23 Chief Complaint: 16 week demise This is a pleasant 37-year-old 9 para 6 female estimated date of confinement 06/16/2023 estimated gestational age 16 weeks and 4 days by first trimester ultrasound who presented to my office on Monday for routine visit. Unfortunately at that time no heart tones were auscultated and ultrasound confirmed an intrauterine demise measuring approximately 15 weeks size. Patient's is complicated by advanced for maternal age however she has had normal genetic testing with self-retaining day. She did have a small subchorionic bleed at the beginning the but has had no bleeding. I discussed options for treatment and she elected proceed with Hemabate induction of labor. Review of Systems Genitourinary: Reports Menstruation: Reports amenorrhea Past Medical History Past Medical History: No Reported History History of Any Multi-Drug Resistant Organisms: None Reported Past Surgical History: No Surgical Hx Reported Additional Past Surgical History / Comment(s): fibroid removal 2012 Past Anesthesia/Blood Transfusion Reactions: No Reported Reaction Past Psychological History: No Psychological Hx Reported Smoking Status: Never smoker Past Alcohol Use History: None Reported Past Drug Use History: None Reported Medications and Allergies Home Medications Medication Instructions Recorded Confirmed Type FLUoxetine HCL [Prozac] 40 mg PO DAILY 09/22/22 09/22/22 History Allergies Allergy/AdvReac Type Severity Reaction Status Date / Time Penicillins Allergy Unknown Verified 09/22/22 12:34 Exam - OBG Physical Exam Abdomen: bowel sounds normal, no diffuse tenderness, no bruit present, no guarding noted, no hepatomegaly, no splenomegaly, no mass Vulva: both: normal Vagina: normal moisture, no discharge Cervix: no lesion, no discharge Uterus: enlarged Results labs show she is O negative, rubella immune, RPR nonreactive, HIV nonreactive, hepatitis B and C were negative, toxoplasmosis was negative, maternity T21 was 46 XX. Ultrasound as above. Assessment and Plan Assessment: This is a pleasant 37-year-old 9 para 6 female estimated gestational age 16 weeks with demise. Plan is Hemabate induction of labor. I did place a laminaria in the office and we'll begin Hemabate at this time. Patient understands this procedure and risks including risk of bleeding possible need for D&C. All the patient's questions are answered and a written consent obtained. (1) demise before 20 weeks with retention of fetus Status: Acute Code(s): O02.1 - MISSED SNOMED Code(s): 355546527 (2) Rh negative status during Status: Acute Code(s): O26.899 - OTH RELATED CONDITIONS, UNSPECIFIED TRIMESTER; Z67.91 - UNSPECIFIED BLOOD TYPE, RH NEGATIVE SNOMED Code(s): 765791726 (3) Elderly multigravida Status: Acute Code(s): O09.529 - SUPERVISION OF ELDERLY MULTIGRAVIDA, UNSPECIFIED TRIMESTER SNOMED Code(s): 520935820
[2023-01-03] MEDS ORDERED: ACETAMINOPHEN TAB 325 MG TAB PO PRN (06:05)
[2023-01-03] MEDS ORDERED: DIPHENOX-ATROP 2.5-0.025 MG 1 EACH TAB PO PRN (06:05)
[2023-01-03] MEDS ORDERED: ONDANSETRON 4 MG/2 ML VIAL IVP PRN (06:05)
[2023-01-03] MEDS ORDERED: NALBUPHINE 10 MG/ML (10 ML MDV) IV PRN (06:05)
[2023-01-03] MEDS ORDERED: LACTATED RINGERS 1,000 ML IV SCH (06:05)
[2023-01-03] MEDS: CARBOPROST TROMETHAMINE 250 MCG/ML 1 ML AMP IM SCH ×2 (06:17→08:26)
[2023-01-03 06:30] LABS: Basophils % (A) 0 %; Eosinophils # (A) 0.1 k/uL (0-0.7); Eosinophils % (A) 1 %; HCT 33.5 % (34.0-46.0); HGB 11.5 gm/dL (11.4-16.0); Lymphocytes # (A) 1.3 k/uL (1.0-4.8); Lymphocytes % (A) 21 %; MCH 30.6 pg (25.0-35.0); MCHC 34.2 g/dL (31.0-37.0); MCV 89.4 fL (80.0-100.0); Mean Platelet Volume 8.4; Monocytes # (A) 0.3 k/uL (0-1.0); Monocytes % (A) 4 %; Neutrophils # (A) 4.3 k/uL (1.3-7.7); Neutrophils % (A) 72 %; Platelet Count 163 k/uL (150-450); RBC 3.75 m/uL (3.80-5.40); RDW 14.4 % (11.5-15.5)
[2023-01-03] MEDS ORDERED: fentaNYL (PF) 50 MCG/ML 2 ML AMP ONE (08:36)
[2023-01-03] MEDS ORDERED: METHYLERGONOVINE 0.2 MG/ML 1 ML AMP ONE (08:36)
[2023-01-03] MEDS ORDERED: SUCCINYLCHOLINE CHLORIDE 200 MG/10 ML VIAL IV ONE (08:36)
[2023-01-03] MEDS ORDERED: LIDOCAINE 2% INJ 20 MG/ML (2 ML VIAL) ONE (08:36)
[2023-01-03] MEDS ORDERED: PROPOFOL 10 MG/ML 20 ML VIAL IV ONE (08:36)
[2023-01-03] MEDS ORDERED: KETOROLAC 15 MG/ML 1 ML VIAL ONE (08:36)
[2023-01-03] MEDS ORDERED: ONDANSETRON 4 MG/2 ML VIAL ONE (08:36)
[2023-01-03] MEDS ORDERED: LANOLIN CREAM 5 GM TUBE TOPICAL PRN (09:15)
[2023-01-03] MEDS ORDERED: diphenhydrAMINE 50 MG/ML 1 ML VIAL IVP PRN (09:15)
[2023-01-03] MEDS ORDERED: diphenhydrAMINE 25 MG CAP PO PRN (09:15)
[2023-01-03] MEDS ORDERED: IBUPROFEN 600 MG TAB PO PRN (09:15)
[2023-01-03] MEDS ORDERED: SIMETHICONE 80 MG CHEWABLE PO PRN (09:15)
[2023-01-03] MEDS ORDERED: Rhogam IMMUNE GLOBULIN 1,500 UNIT/1 ML IM ONE (09:15)
[2023-01-03] MEDS ORDERED: HYDROCORTISONE 2.5% RECTAL CREAM 30 GM TUBE RECTAL PRN (09:15)
[2023-01-03] MEDS ORDERED: BENZOCAINE/MENTHOL SPRAY 1 GM/SPRAY AEROSOL TOPICAL PRN (09:15)
[2023-01-03] MEDS ORDERED: CARBOPROST TROMETHAMINE 250 MCG/ML 1 ML AMP IM ONE (10:30)
[2023-01-03 11:10] VITALS: RESP 18
--- NOTE | 2023-01-03 12:34 | P.PROBDLV ---
Vaginal Delivery Note - . Vaginal Delivery Note: Patient was given one dose of Hemabate this morning. Approximately 2 hours later patient was feeling pressure and volume the bathroom spontaneously delivered a nonviable 15 week size fetus. Patient did began bleeding quite briskly at this point an examination in the room showed the placenta was retained and brisk bleeding. This time I recommended she proceed immediately to the operating room for a D&C for removal of the placenta. Please see separate operative note. Of note the fetus appears to be grossly normal. There is no lacerations time of delivery.
--- NOTE | 2023-01-03 12:38 | P.OP ---
Date of Procedure: 01/03/23 Preoperative Diagnosis: Retained placenta with hemorrhage Postoperative Diagnosis: Same Procedure(s) Performed: Examination under anesthesia with dilation and curettage Anesthesia: JENNY Surgeon: Miguel Quintero Estimated Blood Loss (ml): 500 Pathology: other (Placental fragments) Condition: stable Disposition: floor Indications for Procedure: Please see dictated H&P and delivery note on this patient's admission. Brief summary this is a 37-year-old 9 para 6 female admitted to labor and delivery for delivery secondary to 16 week and her uterine demise. Patient received one dose of Hemabate and quickly went on to have a vaginal delivery of a nonviable fetus. Immediately after delivery she began having brisk bright red bleeding. Examination in the round showed the placenta was not expelled and it was evident that she needed to have manual removal of the p lacenta. Patient was consented and all questions answered. She understands the surgery and risks and risks of infection bleeding and possible uterine perforation. Operative Findings: This patient had retained placenta that was removed in multiple pieces. Description of Procedure: This patient is taken to the operating room where she is laid in the supine position. She subsequently undergoes general endotracheal anesthesia without incident. With an adequate level of anesthesia she's placed in the dorsal lithotomy position. I evacuated all the blood clots in the vagina and the cervix is grabbed with a ring forceps. Cervix is dilated enough that I'm able to pass the ring forceps up into the uterine cavity and multiple passes are made for large pieces of placental tissue. A gentle but thorough 4 quadrant curettage is done as well and no further tissue was noted. At this time, bleeding appears to subside. I watched her closely in the operating room for approximately 5 or 10 more minutes and it appears there is no further bleeding. At this point the procedure is ended. The ring forceps and speculum were removed. All counts are correct 3. There are no complications. Patient is taken to the birthing suite in satisfactory condition.
[2023-01-03 15:47] LABS: Cardiolipin Ab IgG Interp Negative (Negative); Cardiolipin Ab IgM Interp Negative (Negative); Cardiolipin IgA Antibody <2.0 U/mL; Cardiolipin IgM Antibody <1.5 U/mL
[2023-01-03] MEDS ORDERED: METHYLERGONOVINE 0.2 MG TAB PO SCH (16:00)
[2023-01-03 16:18] VITALS: BP 110/62; PULSE 70; TEMP 97.8
--- NOTE | 2023-01-03 17:11 | P.PN ---
Progress Note - Text Progress Note Date: 01/03/23 Patient was watched throughout the day and her bleeding has been completely normal. Vital signs are stable and she is afebrile. Patient is tolerating regular diet, ambulating and urinating without difficulty. Patient wishes to go home. Patient's felt be stable for discharge home follow up with me in 1 week. I did give her strict instructions for his bleeding concerns. She'll continue Methergine for 3 days. Patient also did receive Nohemi.
--- NOTE | 2023-01-03 17:12 | P.DS ---
Providers Date of admission: 01/03/23 05:56 Expected date of discharge: 01/03/23 Attending physician: Miguel Quintero Primary care physician: Stated None - Discharge Diagnosis(es) (1) demise before 20 weeks with retention of fetus Current Visit: No Status: Acute (2) Rh negative status during Current Visit: No Status: Acute (3) Elderly multigravida Current Visit: No Status: Acute Hospital Course: Please see dictated admission history and physical, delivery note, an operative note on this patient's admission. Brief summary this pleasant 37-year-old 9 para 6 female estimated gestational age 16 weeks presents to labor and delivery with a intrauterine demise for delivery. Patient is admitted she has Hemabate placed approximately 1 hour later was on have a vaginal delivery of nonviable fetus. Unfortunately patient does have a retained placenta which requires D&C for treatment. Postoperative patient does well later in the days felt be stable for discharge home follow up with me in 1 week. Procedures: Induction of labor and dilation and curettage Patient Condition at Discharge: Good Plan - Discharge Summary New Discharge Prescriptions: New RX: Methylergonovine [Methergine] 0.2 mg PO TID #9 tab RX: Ibuprofen [Motrin] 600 mg PO Q6HR PRN #30 tab PRN Reason: Mild Pain (Scale 1 To 3) No Action FLUoxetine HCL [Prozac] 40 mg PO DAILY Cephalexin [Keflex] 500 mg PO Q12HR Discharge Medication List FLUoxetine HCL [Prozac] 40 mg PO DAILY 09/22/22 [History] Cephalexin [Keflex] 500 mg PO Q12HR 01/03/23 [History] RX: Ibuprofen [Motrin] 600 mg PO Q6HR PRN #30 tab 01/03/23 [Rx] RX: Methylergonovine [Methergine] 0.2 mg PO TID #9 tab 01/03/23 [Rx] Follow up Appointment(s)/Referral(s): Miguel Quintero MD [STAFF PHYSICIAN] - 01/11/23 9:00 am (02/15/2023 @1:30 PM) Patient Instructions/Handouts: Vaginal Delivery (DC), Dilation and Curettage (DC) Activity/Diet/Wound Care/Special Instructions: No intercourse or anything per vagina for 6 weeks. Please call if any fever, chills, excessive vaginal bleeding, and/or abdominal pain. Discharge Disposition: HOME SELF-CARE
[2023-01-03] MEDS ORDERED: SENNOSIDES-DOCUSATE SODIUM 1 EACH TAB PO SCH (20:00)
[2023-01-04 05:45] LABS: Herpes simplex IgG I Ab <0.01 (< or = 0.90); Herpes simplex IgG II Ab 9.61 (< or = 0.90)
[2023-01-04 12:40] LABS: APTT 43 Sec(s) (<43); Dilute Russell Viper Venom 36 Sec(s) (<44)
[2023-01-05 06:20] LABS: Herpes simplex I and/or II IgM 1.17 INDEX (<=0.90); Toxoplasma Antibody (IgM) <3.0 AU/mL (<8.0)
== END 2023-01-03 17:10 | disposition home or self-care (01) | DRG 770 ==
LOC: 4FBP 05:56
PROVIDERS: ADMIT Obstetrics & Gynecology; ATTEND Obstetrics & Gynecology
PROC: 10D17ZZ Extraction of Products of Conception, Retained, Via Natural or Artificial Opening (ICD-10-PCS; 2023-01-03)
PROC: 10E0XZZ Delivery of Products of Conception, External Approach (ICD-10-PCS; principal; 2023-01-03 08:30)
DX: O02.1 Missed abortion (principal); Z67.91 Unspecified blood type, Rh negative; Z79.899 Other long term (current) drug therapy; Z88.0 Allergy status to penicillin
CPT/HCPCS: 85025; 85613; 85730; 86147; 86644; 86645; 86694; 86695; 86696; 86762; 86777; 86778; 86850; 86900; 86901